=== PATIENT | female | born 1945 | race Two or more races ===

== ENCOUNTER 2018-07-10 21:12 | Inpatient (IN) | payer MEDICARE ==
[~2018-07-10] VITALS: Ht 172.7 cm; Wt 70.3 kg
--- NOTE | 2018-07-10 21:31 | NUR ---
Dr. Cevallos at bedside of [facility].
[2018-07-10] MEDS ORDERED: HALOPERIDOL LACTATE 5 MG/1 ML VIAL ONE (21:42)
[2018-07-10] MEDS ORDERED: LORAZEPAM 2 MG/1 ML VIAL ONE (21:42)
--- NOTE | 2018-07-10 21:43 | NUR ---
Xray at bedside.
[2018-07-10] MEDS ORDERED: HALOPERIDOL LACTATE 5 MG/1 ML VIAL IM ONE (21:45)
[2018-07-10] MEDS ORDERED: LORAZEPAM 2 MG/1 ML VIAL IV ONE (21:45)
[2018-07-10] MEDS ORDERED: LORA0.5T PO (21:50)
[2018-07-10] MEDS ORDERED: DIPH25TA62 PO (21:50)
[2018-07-10] MEDS ORDERED: LUBI24CA5 PO (21:50)
[2018-07-10] MEDS ORDERED: MEMA10TA PO (21:50)
[2018-07-10] MEDS ORDERED: MEGE400O2 PO (21:50)
[2018-07-10] MEDS ORDERED: DONE10TA44 PO (21:50)
[2018-07-10] MEDS ORDERED: POTA10TA15 PO (21:50)
[2018-07-10] MEDS ORDERED: FURO-152 PO (21:50)
[2018-07-10] MEDS ORDERED: METO25TA6 PO (21:50)
[2018-07-10] MEDS ORDERED: ASPI81TA31 PO (21:50)
[2018-07-10] MEDS ORDERED: LORAZEPAM 2 MG/1 ML VIAL IM ONE (22:00)
[2018-07-10 22:05] LABS: BASOPHILS # (AUTO) 0.1 K/uL (0.0-8.0); BASOPHILS % (AUTO) 1.3 % (0.0-2.0); EOSINOPHILS # (AUTO) 0.4 K/uL (0.0-0.7); EOSINOPHILS % (AUTO) 4.3 % (0.0-7.0); HEMATOCRIT 38.1 % (31.2-41.9); HEMOGLOBIN 12.6 g/dL (10.9-14.3); LYMPHOCYTES # (AUTO) 2.4 K/uL (20.0-40.0); LYMPHOCYTES % (AUTO) 28.4 % (20.5-51.5); MEAN CORPUSCULAR HEMOGLOBIN 29.9 uug (24.7-32.8); MEAN CORPUSCULAR HGB CONC 33 g/dL (32.3-35.6); MONOCYTES # (AUTO) 0.8 K/uL (2.0-10.0); MONOCYTES % (AUTO) 9.2 % (0.0-11.0); NEUTROPHILS # (AUTO) 4.9 K/uL (1.8-8.9); NEUTROPHILS % (AUTO) 56.8 % (38.5-71.5); PLATELET COUNT (AUTO) 198 K/uL (179-408); RED BLOOD CELL COUNT(AUTO) 4.23 MIL/uL (3.63-4.92); WHITE BLOOD COUNT (AUTO) 8.5 K/uL (3.8-11.8)
[2018-07-10 22:14] LABS: CARBON DIOXIDE 30 mmol/L (21-32); CHLORIDE 105 mmol/L (98-107); CREATININE 1.2 mg/dL (0.6-1.3); GLUCOSE 118 mg/dL (74-106); POTASSIUM 4.3 mmol/L (3.5-5.1); UREA NITROGEN, BLOOD 19 mg/dL (7-18)
[2018-07-10 22:19] LABS: ALANINE AMINOTRANSFERASE 11 U/L (14-59); ALKALINE PHOSPHATASE 97 U/L (50-136); ASPARTATE AMINOTRANSFERASE 8 U/L (15-37); BILIRUBIN,DIRECT 0.1 mg/dL (0.0-0.2); BILIRUBIN,TOTAL 0.2 mg/dL (0.2-1.0); ETHANOL < 3 MG/DL (0-0); TOTAL PROTEIN, SERUM 6.3 g/dL (6.4-8.2)
[2018-07-10 22:27] LABS: THYROID STIMULATING HORMONE 4.927 mIU/mL (0.358-3.740)
--- NOTE | 2018-07-10 22:50 | NUR ---
Regino SOMMERSW arrived to ER for psych eval.
[2018-07-10 23:43] LABS: *BILIRUBIN,URIN NEGATIVE (NEGATIVE); *BLOOD, URINE NEGATIVE (NEGATIVE); *CLARITY,URINE CLEAR (CLEAR); *COLOR,URINE YELLOW (YELLOW); *KETONES,URINE NEGATIVE (NEGATIVE); LEUKOCYTE ESTERASE ,URINE NEGATIVE (NEGATIVE); NITRITE, URINE POSITIVE (NEGATIVE); UGLUCOSE NEGATIVE (NEGATIVE)
[2018-07-10 23:53] LABS: BACTERIA,URINE MANY /HPF (NONE SEEN); RBC,URINE 0-3 /HPF (0-3); SQUAMOUS EPITHELIAL CELL,UR FEW /HPF (NONE SEEN)
[2018-07-10 23:56] LABS: *AMPHETAMINE, URINE NEGATIVE (NEGATIVE); *BARBITURATE, URINE NEGATIVE (NEGATIVE); *CANNABINOID, URINE NEGATIVE (NEGATIVE); *COCCAINE, URINE NEGATIVE (NEGATIVE); *OPIATE, URINE NEGATIVE (NEGATIVE); *PHENCYCLIDINE SCREEN,URINE NEGATIVE (NEGATIVE)
--- NOTE | 2018-07-11 00:43 | NUR ---
Report given to Karla PEREZ MHU.
--- NOTE | 2018-07-11 01:50 | NUR ---
Admission note: Received patient via gurney from ED. Max assist to the bed. Patient non verbal when spoken to, but did open eyes. Patient unable to answer any questions and fell asleep within minutes. Monitoring for safety , no acting out noted so far.
[2018-07-11] MEDS ORDERED: MAG HYDROX/AL HYDROX/SIMETH 30 ML LIQUID UDC PO PRN (02:00)
[2018-07-11] MEDS ORDERED: ACETAMINOPHEN 325 MG TABLET PO PRN (02:00)
[2018-07-11] MEDS ORDERED: MAGNESIUM HYDROXIDE 30 ML LIQUID UDC PO PRN (02:00)
[2018-07-11 07:30] VITALS: BP 159/93
[2018-07-11] MEDS: DIVALPROEX SPRINKLE 125 MG CAP.SPRINK PO SCH ×4 (10:45→17:00)
[2018-07-11] MEDS: POTASSIUM CHLORIDE 10 MEQ TAB.PRT.SR PO SCH (13:41)
[2018-07-11] MEDS: FUROSEMIDE 20 MG TABLET PO SCH (13:45)
[2018-07-11 16:00] VITALS: BP 139/73
[2018-07-11] MEDS: METOPROLOL TARTRATE 25 MG TABLET PO SCH (20:08)
[2018-07-11 20:11] VITALS: BP 141/69
[2018-07-11] MEDS ORDERED: diphenhydrAMINE 25 MG CAP PO SCH (21:00)
--- NOTE | 2018-07-11 21:30 | NUR ---
Refused HS medication.
[2018-07-11] MEDS ORDERED: Z GUARD REMEDY PASTE 57 GM TUBE TOP PRN (23:45)
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
[2018-07-12 07:30] VITALS: BP 141/90
[2018-07-12] MEDS: METOPROLOL TARTRATE 25 MG TABLET PO SCH ×2 (09:00→20:59)
[2018-07-12] MEDS: POTASSIUM CHLORIDE 10 MEQ TAB.PRT.SR PO SCH (09:00)
[2018-07-12] MEDS: MEGESTROL ACETATE 400 MG/10 ML LIQUID UDC PO SCH (09:00)
[2018-07-12] MEDS: DIVALPROEX SPRINKLE 125 MG CAP.SPRINK PO SCH ×3 (09:00→17:45)
[2018-07-12] MEDS: ASPIRIN 81 MG TAB.CHEW PO SCH (09:00)
[2018-07-12] MEDS: FUROSEMIDE 20 MG TABLET PO SCH (09:00)
--- NOTE | 2018-07-12 12:39 | NUR ---
Social work note: 12:30pm: Per patient 5150 hold, patient has a public guardian [Renetta Knott; ]. construction worker called Renetta and left a voicemail requesting conservatorship paperwork and detain & treat be faxed over. construction worker awaiting fax and call back from public guardian.
--- NOTE | 2018-07-12 14:27 | NUR ---
Initial Discharge Note: Patient is a 73 year old female who currently resides at [facility] [[address] [place] [address]; ]. Per probate conservator, Renetta Knott [ ], she would like patient to return to facility when ready. jackscrew worker called facility and spoke with complaint coordinator, Xin, who states they will accept patient back pending reassessment. jackscrew worker will coordinate reassessment when patient is closer to a discharge date. jackscrew worker will continue to collaborate with patient, probate conservator, and MD on a safe and proper discharge.
[2018-07-12 15:39] LABS: BASOPHILS # (AUTO) 0.1 K/uL (0.0-8.0); BASOPHILS % (AUTO) 1.1 % (0.0-2.0); EOSINOPHILS # (AUTO) 0.1 K/uL (0.0-0.7); EOSINOPHILS % (AUTO) 1.4 % (0.0-7.0); HEMATOCRIT 39.4 % (31.2-41.9); LYMPHOCYTES # (AUTO) 1.4 K/uL (20.0-40.0); LYMPHOCYTES % (AUTO) 16.5 % (20.5-51.5); MEAN CORPUSCULAR HEMOGLOBIN 29.7 uug (24.7-32.8); MEAN CORPUSCULAR HGB CONC 33 g/dL (32.3-35.6); MEAN CORPUSCULAR VOLUME 90.2 fL (75.5-95.3); MONOCYTES # (AUTO) 0.6 K/uL (2.0-10.0); MONOCYTES % (AUTO) 6.8 % (0.0-11.0); NEUTROPHILS # (AUTO) 6.2 K/uL (1.8-8.9); NEUTROPHILS % (AUTO) 74.2 % (38.5-71.5); PLATELET COUNT (AUTO) 212 K/uL (179-408); RED BLOOD CELL COUNT(AUTO) 4.37 MIL/uL (3.63-4.92); WHITE BLOOD COUNT (AUTO) 8.3 K/uL (3.8-11.8)
[2018-07-12 15:48] LABS: CARBON DIOXIDE 30 mmol/L (21-32); CHLORIDE 107 mmol/L (98-107); GLUCOSE 132 mg/dL (74-106); MAGNESIUM 2.2 mg/dL (1.8-2.4); POTASSIUM 4.3 mmol/L (3.5-5.1); UREA NITROGEN, BLOOD 25 mg/dL (7-18)
[2018-07-12 15:50] VITALS: BP 189/68
[2018-07-12 20:00] VITALS: BP 103/77
[2018-07-12] MEDS: TEMAZEPAM 7.5 MG CAPSULE PO PRN (20:59)
[2018-07-12] MEDS: LORAZEPAM 0.5 MG TABLET PO PRN (23:13)
[2018-07-13 07:30] VITALS: BP 139/50
[2018-07-13] MEDS: MEGESTROL ACETATE 400 MG/10 ML LIQUID UDC PO SCH (08:04)
[2018-07-13] MEDS: DIVALPROEX SPRINKLE 125 MG CAP.SPRINK PO SCH ×3 (08:05→16:28)
[2018-07-13] MEDS: FUROSEMIDE 20 MG TABLET PO SCH (08:05)
[2018-07-13] MEDS: POTASSIUM CHLORIDE 10 MEQ TAB.PRT.SR PO SCH (08:05)
[2018-07-13] MEDS: ASPIRIN 81 MG TAB.CHEW PO SCH (08:05)
[2018-07-13] MEDS: METOPROLOL TARTRATE 25 MG TABLET PO SCH ×2 (09:00→21:00)
--- NOTE | 2018-07-13 12:38 | NUR ---
WOUND CARE CONSULT: PT ADAMANTLY REFUSED SKIN ASSESSMENT. SPOKE WITH NURSING STAFF AND REVIEWED ADMISSION PHOTOS. PER NURSING STAFF, PT HAS LEFT INNER BUTTOCK OPEN SKIN AND IS INCONTINENT BUT AMBULATORY. RECOMMENDATIONS MADE FOR SKIN CARE AND PROTECTION. DISCUSSED WITH NURSING STAFF. WILL SEE PRN. WHITE IN AGREEMENT WITH PLAN OF CARE. CURRENT GIANCARLO SCORE IS 17. Addendum: 07/13/18 at 1243 by MAXIMUS LOW RN RECOMMENDATIONS MADE BASED ON ADMISSION PHOTO DOCUMENTATION AND NURSING REPORT.
[2018-07-13 15:42] VITALS: BP 104/62
[2018-07-13] MEDS ORDERED: DIVALPROEX 250 MG TABLET.DR PO SCH (21:00)
--- NOTE | 2018-07-13 22:00 | NUR ---
received to care, lying in bed, asleep. refused b/p check, wound assessment, and all medications. as of 2199, she remains asleep. no distress noted.
[2018-07-14] MEDS: LORAZEPAM 0.5 MG TABLET PO PRN ×2 (06:12→18:10)
--- NOTE | 2018-07-14 06:13 | NUR ---
is now awake, and pacing the hallway. intrusive with peers rooms. PRN ativan was given, amd she was assisted back to bed. will continue to monitor closely.
--- NOTE | 2018-07-14 06:44 | NUR ---
appears to be asleep. slept 6 hours.
[2018-07-14 07:30] VITALS: BP 139/58
[2018-07-14] MEDS: POTASSIUM CHLORIDE 10 MEQ TAB.PRT.SR PO SCH (08:54)
[2018-07-14] MEDS: MEGESTROL ACETATE 400 MG/10 ML LIQUID UDC PO SCH (08:54)
[2018-07-14] MEDS: ASPIRIN 81 MG TAB.CHEW PO SCH (08:55)
[2018-07-14] MEDS: FUROSEMIDE 20 MG TABLET PO SCH (08:55)
[2018-07-14] MEDS: METOPROLOL TARTRATE 25 MG TABLET PO SCH ×2 (08:55→20:44)
[2018-07-14] MEDS ORDERED: DIVALPROEX SPRINKLE 125 MG CAP.SPRINK PO SCH (09:00)
[2018-07-14 11:34] LABS: BASOPHILS % (AUTO) 0.6 % (0.0-2.0); EOSINOPHILS # (AUTO) 0.3 K/uL (0.0-0.7); EOSINOPHILS % (AUTO) 3.6 % (0.0-7.0); HEMATOCRIT 39.9 % (31.2-41.9); HEMOGLOBIN 13.2 g/dL (10.9-14.3); LYMPHOCYTES # (AUTO) 1.4 K/uL (20.0-40.0); LYMPHOCYTES % (AUTO) 18.3 % (20.5-51.5); MEAN CORPUSCULAR HEMOGLOBIN 29.8 uug (24.7-32.8); MEAN CORPUSCULAR HGB CONC 33 g/dL (32.3-35.6); MEAN CORPUSCULAR VOLUME 90.2 fL (75.5-95.3); MONOCYTES # (AUTO) 0.6 K/uL (2.0-10.0); MONOCYTES % (AUTO) 8.1 % (0.0-11.0); NEUTROPHILS # (AUTO) 5.2 K/uL (1.8-8.9); NEUTROPHILS % (AUTO) 69.4 % (38.5-71.5); PLATELET COUNT (AUTO) 185 K/uL (179-408); RED BLOOD CELL COUNT(AUTO) 4.43 MIL/uL (3.63-4.92); WHITE BLOOD COUNT (AUTO) 7.5 K/uL (3.8-11.8)
[2018-07-14 11:48] LABS: ALANINE AMINOTRANSFERASE 14 U/L (14-59); ALKALINE PHOSPHATASE 76 U/L (50-136); ASPARTATE AMINOTRANSFERASE 16 U/L (15-37); BILIRUBIN,TOTAL 0.4 mg/dL (0.2-1.0); CARBON DIOXIDE 29 mmol/L (21-32); CHLORIDE 108 mmol/L (98-107); GLUCOSE 121 mg/dL (74-106); MAGNESIUM 1.9 mg/dL (1.8-2.4); POTASSIUM 4.7 mmol/L (3.5-5.1); TOTAL PROTEIN, SERUM 6.2 g/dL (6.4-8.2); UREA NITROGEN, BLOOD 16 mg/dL (7-18)
[2018-07-14] MEDS: DIVALPROEX SPRINKLE 125 MG CAP.SPRINK PO SCH ×2 (13:16→17:46)
[2018-07-14 19:52] VITALS: BP 153/70
[2018-07-14] MEDS: TEMAZEPAM 7.5 MG CAPSULE PO PRN (20:44)
--- NOTE | 2018-07-14 22:00 | NUR ---
received to care, lying in bed, non interactive, but easy to redirect. continues to refuse wound assessment. observed to be pacing intermittently. PRN restoril was given at 2044. as of 2199, she appears to be asleep. no distress noted. will continue to monitor closely.
--- NOTE | 2018-07-15 06:00 | NUR ---
slept 7.5 hours.
[2018-07-15 07:30] VITALS: BP 102/82
[2018-07-15] MEDS: ASPIRIN 81 MG TAB.CHEW PO SCH (08:32)
[2018-07-15] MEDS: MEGESTROL ACETATE 400 MG/10 ML LIQUID UDC PO SCH (08:32)
[2018-07-15] MEDS: DIVALPROEX SPRINKLE 125 MG CAP.SPRINK PO SCH ×3 (08:33→18:11)
[2018-07-15] MEDS: POTASSIUM CHLORIDE 10 MEQ TAB.PRT.SR PO SCH (08:33)
[2018-07-15] MEDS: METOPROLOL TARTRATE 25 MG TABLET PO SCH ×2 (08:34→20:21)
[2018-07-15] MEDS: FUROSEMIDE 20 MG TABLET PO SCH (08:35)
--- NOTE | 2018-07-15 10:30 | NUR ---
Gps/Program Services Planner- Dr Guy called requesting postponement of Reise hearing, noted patient had been taking her routine medications. Called Court as requested, spoked to Nadja, informed of the request cancellation , PC hearing still scheduled at 1500. Karen JEAN was informed.
--- NOTE | 2018-07-15 11:30 | NUR ---
GPS PATIENT CONTINUOUSLY PACING AROUND THE HALLWAY,PATIENT HAS REFUSED TO HAVE HER URINE TO BE COLLECTED, WITH FOUL SMELL ODOR NOTED
[2018-07-15] MEDS: NITROFURANTOIN/NITROFURAN MAC 100 MG CAPSULE PO SCH ×2 (12:06→20:20)
--- NOTE | 2018-07-15 14:42 | NUR ---
Gps/.Floor Representative- Refusing blood draws, uncooperative Lab.tech. Wanders around the unit, goes room to room, constant redirections.Had been complaint with routine meds. with min.prompting. Safety reviewed, emphasized. Monitor needs. Had echo done at the bedside 2 staff assisting during procedures, patient was figity.
--- NOTE | 2018-07-16 05:50 | NUR ---
GPS: Remain confused and disoriented. assisted with adl's. patient is incontinent. good pericare provided. slept 7:30 hrs through the night. continue plan of care.
[2018-07-16 07:30] VITALS: BP 100/62
[2018-07-16] MEDS: POTASSIUM CHLORIDE 10 MEQ TAB.PRT.SR PO SCH (08:50)
[2018-07-16] MEDS: DIVALPROEX SPRINKLE 125 MG CAP.SPRINK PO SCH ×3 (08:50→17:28)
[2018-07-16] MEDS: NITROFURANTOIN/NITROFURAN MAC 100 MG CAPSULE PO SCH ×2 (08:50→20:50)
[2018-07-16] MEDS: ASPIRIN 81 MG TAB.CHEW PO SCH (08:50)
[2018-07-16] MEDS: MEGESTROL ACETATE 400 MG/10 ML LIQUID UDC PO SCH (08:51)
[2018-07-16] MEDS: METOPROLOL TARTRATE 25 MG TABLET PO SCH ×2 (08:51→20:50)
[2018-07-16] MEDS: FUROSEMIDE 20 MG TABLET PO SCH (08:54)
[2018-07-16] MEDS: OLANZAPINE ZYDIS 5 MG TAB.RAPDIS PO SCH ×2 (13:28→20:50)
[2018-07-16 16:00] VITALS: BP 112/58
--- NOTE | 2018-07-16 18:00 | NUR ---
Gps/Newspaper Journalist- Kept up on a otto-chair after her shower , Fed self ind. after set up. Patient noted after few minutes, she's getting anxious, wanting to walk around . patient tends to wanders to other patient's room , constant redirections provided, continue to monitor patient closely for safety.
--- NOTE | 2018-07-16 18:15 | NUR ---
Gps/Dress Cap Maker- Had poorly groomed toenails, great toes are thick and curling, might benefit from a Podiatry consult.
--- NOTE | 2018-07-16 20:00 | NUR ---
RECEIVED PATIENT IN THE HALLWAY SITTING IN A TITO CHAIR. SHE IS NOTED A/O X 1. CALM AND PLEASANT AT THIS TIME. POOR HISTORIAN. BLUNTED AFFECT. V/S STABLE AT THIS TIME. PATIENT WAS REASSURED FOR HER SAFETY. SAFETY AND FALL PRECAUTION ARE IN PLACED. WILL CONTINUE TO MONITOR,
[2018-07-16 22:11] VITALS: BP 158/60
[2018-07-17 07:30] VITALS: BP 145/53
[2018-07-17 07:30] LABS: BASOPHILS % (AUTO) 0.7 % (0.0-2.0); EOSINOPHILS # (AUTO) 0.3 K/uL (0.0-0.7); EOSINOPHILS % (AUTO) 4.6 % (0.0-7.0); HEMATOCRIT 40.6 % (31.2-41.9); HEMOGLOBIN 13.3 g/dL (10.9-14.3); LYMPHOCYTES # (AUTO) 2.3 K/uL (20.0-40.0); LYMPHOCYTES % (AUTO) 34.4 % (20.5-51.5); MEAN CORPUSCULAR HEMOGLOBIN 29.6 uug (24.7-32.8); MEAN CORPUSCULAR HGB CONC 33 g/dL (32.3-35.6); MEAN CORPUSCULAR VOLUME 89.9 fL (75.5-95.3); MONOCYTES # (AUTO) 0.6 K/uL (2.0-10.0); MONOCYTES % (AUTO) 9.3 % (0.0-11.0); NEUTROPHILS # (AUTO) 3.4 K/uL (1.8-8.9); PLATELET COUNT (AUTO) 197 K/uL (179-408); RED BLOOD CELL COUNT(AUTO) 4.51 MIL/uL (3.63-4.92); WHITE BLOOD COUNT (AUTO) 6.7 K/uL (3.8-11.8)
[2018-07-17] MEDS: DIVALPROEX SPRINKLE 125 MG CAP.SPRINK PO SCH ×3 (09:39→16:53)
[2018-07-17] MEDS: POTASSIUM CHLORIDE 10 MEQ TAB.PRT.SR PO SCH (09:39)
[2018-07-17] MEDS: NITROFURANTOIN/NITROFURAN MAC 100 MG CAPSULE PO SCH ×2 (09:39→20:01)
[2018-07-17] MEDS: ASPIRIN 81 MG TAB.CHEW PO SCH (09:39)
[2018-07-17] MEDS: FUROSEMIDE 20 MG TABLET PO SCH (09:39)
[2018-07-17] MEDS: METOPROLOL TARTRATE 25 MG TABLET PO SCH ×2 (09:40→20:04)
[2018-07-17] MEDS: OLANZAPINE ZYDIS 5 MG TAB.RAPDIS PO SCH ×2 (09:40→20:01)
[2018-07-17] MEDS: MEGESTROL ACETATE 400 MG/10 ML LIQUID UDC PO SCH (09:41)
--- NOTE | 2018-07-17 12:05 | NUR ---
Gps/Center Administrator-Per monitor, noted patient had episode of falling, as she missed the chair when she was trying to sit down on it.Patient fell backward , not hitting his head . B/P 106/59 , 94% 02 sat , HR 67, resp 16.Patient refusing to have body check , will reassess when calmed down.
--- NOTE | 2018-07-17 12:20 | NUR ---
Gps/Coppersmith Apprentice- Heather Shoemaker DOCUMENT CLERK was called by Movie Extra Jade, was informed of the mechanical fall, no orders received. Continue to monitor patient for safety denies pain .
[2018-07-17 15:36] VITALS: BP 125/70
[2018-07-17] MEDS: LORAZEPAM 0.5 MG TABLET PO PRN ×2 (16:53→22:53)
--- NOTE | 2018-07-17 17:45 | NUR ---
Gps/Restaurant Busser- Poor safety judgement, almost falling episode as observed and assisted by Oil Well Directional Surveyor. Kept patient up in her otto-chair during her dinner for safety, and to be able to concentrate during her meal , patient tends to wander around , goes room to room, constant redirections.
[2018-07-17 20:35] VITALS: BP 144/71
[2018-07-18 07:30] VITALS: BP 156/84
[2018-07-18] MEDS: ASPIRIN 81 MG TAB.CHEW PO SCH (08:42)
[2018-07-18] MEDS: POTASSIUM CHLORIDE 10 MEQ TAB.PRT.SR PO SCH (08:42)
[2018-07-18] MEDS: FUROSEMIDE 20 MG TABLET PO SCH (08:42)
[2018-07-18] MEDS: NITROFURANTOIN/NITROFURAN MAC 100 MG CAPSULE PO SCH ×2 (08:42→20:17)
[2018-07-18] MEDS: OLANZAPINE ZYDIS 5 MG TAB.RAPDIS PO SCH ×2 (08:42→20:18)
[2018-07-18] MEDS: DIVALPROEX SPRINKLE 125 MG CAP.SPRINK PO SCH ×3 (08:42→16:29)
[2018-07-18] MEDS: MEGESTROL ACETATE 400 MG/10 ML LIQUID UDC PO SCH (08:43)
[2018-07-18] MEDS: METOPROLOL TARTRATE 25 MG TABLET PO SCH ×2 (08:52→20:17)
--- NOTE | 2018-07-18 09:14 | NUR ---
Gps/Uniform Designer Remains up on her jack-chair for breakfast, ate well, with min assist.r/t patient tends to spills her fluids. Calling out for help, anxious ,banging her tray safety continue to emphasized. Kept infront of the Nurses station, to closely monitored safety.
[2018-07-18] MEDS: LORAZEPAM 0.5 MG TABLET PO PRN ×2 (15:29→21:29)
[2018-07-18 16:08] VITALS: BP 142/63
[2018-07-18 21:49] VITALS: BP 138/62
[2018-07-18 22:02] VITALS: BP 138/62
[2018-07-19 07:30] VITALS: BP 183/79
[2018-07-19] MEDS: NITROFURANTOIN/NITROFURAN MAC 100 MG CAPSULE PO SCH ×2 (08:55→21:57)
[2018-07-19] MEDS: DIVALPROEX SPRINKLE 125 MG CAP.SPRINK PO SCH ×3 (08:55→17:06)
[2018-07-19] MEDS: OLANZAPINE ZYDIS 5 MG TAB.RAPDIS PO SCH ×2 (08:55→21:58)
[2018-07-19] MEDS: POTASSIUM CHLORIDE 10 MEQ TAB.PRT.SR PO SCH (08:55)
[2018-07-19] MEDS: FUROSEMIDE 20 MG TABLET PO SCH (08:55)
[2018-07-19] MEDS: ASPIRIN 81 MG TAB.CHEW PO SCH (08:55)
[2018-07-19] MEDS: MEGESTROL ACETATE 400 MG/10 ML LIQUID UDC PO SCH (08:56)
[2018-07-19] MEDS: METOPROLOL TARTRATE 25 MG TABLET PO SCH ×2 (08:58→21:57)
--- NOTE | 2018-07-19 09:57 | NUR ---
Firearms Report: fruit or nut farm worker completed and submitted a [employer] firearms report for a 5250 GD certification.
[2018-07-19 16:11] VITALS: BP 155/77
--- NOTE | 2018-07-19 18:44 | NUR ---
patient is sitting in the gerichair, no sob, resp even nonlabored, no acute distress noted, safety measures in place, assisted with meals. no agressive or combative behaviour noted.
[2018-07-19 20:46] VITALS: BP 164/69
--- NOTE | 2018-07-20 06:18 | NUR ---
Pt given shower this morning. No overnight events. Pt in otto chair next to nurse's station at this time, in no acute distress.
[2018-07-20 07:30] VITALS: BP 141/94
[2018-07-20 07:57] LABS: BASOPHILS # (AUTO) 0.1 K/uL (0.0-8.0); BASOPHILS % (AUTO) 0.6 % (0.0-2.0); EOSINOPHILS # (AUTO) 0.3 K/uL (0.0-0.7); EOSINOPHILS % (AUTO) 3.5 % (0.0-7.0); HEMOGLOBIN 14.9 g/dL (10.9-14.3); LYMPHOCYTES # (AUTO) 2.5 K/uL (20.0-40.0); MEAN CORPUSCULAR HGB CONC 33 g/dL (32.3-35.6); MONOCYTES # (AUTO) 0.8 K/uL (2.0-10.0); MONOCYTES % (AUTO) 9.4 % (0.0-11.0); NEUTROPHILS # (AUTO) 4.4 K/uL (1.8-8.9); NEUTROPHILS % (AUTO) 55.5 % (38.5-71.5); PLATELET COUNT (AUTO) 216 K/uL (179-408); RED BLOOD CELL COUNT(AUTO) 4.95 MIL/uL (3.63-4.92)
[2018-07-20 08:06] LABS: ALANINE AMINOTRANSFERASE 19 U/L (14-59); ALKALINE PHOSPHATASE 78 U/L (50-136); ASPARTATE AMINOTRANSFERASE 19 U/L (15-37); BILIRUBIN,TOTAL 0.3 mg/dL (0.2-1.0); CARBON DIOXIDE 30 mmol/L (21-32); CHLORIDE 108 mmol/L (98-107); CREATININE 0.9 mg/dL (0.6-1.3); GLUCOSE 100 mg/dL (74-106); POTASSIUM 4.8 mmol/L (3.5-5.1); TOTAL PROTEIN, SERUM 7.5 g/dL (6.4-8.2); UREA NITROGEN, BLOOD 30 mg/dL (7-18); VALPROIC ACID 69 ug/mL (50-100)
[2018-07-20] MEDS: ASPIRIN 81 MG TAB.CHEW PO SCH (08:17)
[2018-07-20] MEDS: FUROSEMIDE 20 MG TABLET PO SCH (08:17)
[2018-07-20] MEDS: NITROFURANTOIN/NITROFURAN MAC 100 MG CAPSULE PO SCH ×2 (08:17→20:13)
[2018-07-20] MEDS: DIVALPROEX SPRINKLE 125 MG CAP.SPRINK PO SCH ×3 (08:17→16:36)
[2018-07-20] MEDS: OLANZAPINE ZYDIS 5 MG TAB.RAPDIS PO SCH ×2 (08:18→20:13)
[2018-07-20] MEDS: POTASSIUM CHLORIDE 10 MEQ TAB.PRT.SR PO SCH (08:18)
[2018-07-20] MEDS: METOPROLOL TARTRATE 25 MG TABLET PO SCH ×2 (08:18→20:14)
[2018-07-20] MEDS: MEGESTROL ACETATE 400 MG/10 ML LIQUID UDC PO SCH (08:19)
[2018-07-20 15:10] VITALS: BP 140/64
[2018-07-20 20:46] VITALS: BP 146/97
[2018-07-21 07:30] VITALS: BP 147/52
[2018-07-21] MEDS: POTASSIUM CHLORIDE 10 MEQ TAB.PRT.SR PO SCH (08:07)
[2018-07-21] MEDS: NITROFURANTOIN/NITROFURAN MAC 100 MG CAPSULE PO SCH (08:07)
[2018-07-21] MEDS: OLANZAPINE ZYDIS 5 MG TAB.RAPDIS PO SCH ×2 (08:07→20:15)
[2018-07-21] MEDS: FUROSEMIDE 20 MG TABLET PO SCH (08:07)
[2018-07-21] MEDS: ASPIRIN 81 MG TAB.CHEW PO SCH (08:07)
[2018-07-21] MEDS: DIVALPROEX SPRINKLE 125 MG CAP.SPRINK PO SCH ×3 (08:07→16:26)
[2018-07-21] MEDS: MEGESTROL ACETATE 400 MG/10 ML LIQUID UDC PO SCH (08:09)
[2018-07-21] MEDS: METOPROLOL TARTRATE 25 MG TABLET PO SCH ×2 (08:09→20:14)
[2018-07-21 16:00] VITALS: BP 146/62
[2018-07-21] MEDS ORDERED: METOPROLOL TARTRATE 25 MG TABLET PO SCH (21:00)
[2018-07-21 21:04] VITALS: BP 153/73
[2018-07-21] MEDS ORDERED: METOPROLOL TARTRATE 25 MG TABLET PO ONE (21:15)
[2018-07-22] MEDS: TEMAZEPAM 7.5 MG CAPSULE PO PRN (01:57)
[2018-07-22 07:30] VITALS: BP 138/56
[2018-07-22] MEDS: POTASSIUM CHLORIDE 10 MEQ TAB.PRT.SR PO SCH (08:56)
[2018-07-22] MEDS: DIVALPROEX SPRINKLE 125 MG CAP.SPRINK PO SCH ×2 (08:56→12:22)
[2018-07-22 08:57] VITALS: BP 138/56
[2018-07-22] MEDS: FUROSEMIDE 20 MG TABLET PO SCH (08:57)
[2018-07-22] MEDS: ASPIRIN 81 MG TAB.CHEW PO SCH (08:57)
[2018-07-22] MEDS: OLANZAPINE ZYDIS 5 MG TAB.RAPDIS PO SCH (08:57)
[2018-07-22] MEDS: MEGESTROL ACETATE 400 MG/10 ML LIQUID UDC PO SCH (08:58)
[2018-07-22] MEDS ORDERED: METOPROLOL TARTRATE 25 MG TABLET PO SCH (09:00)
--- NOTE | 2018-07-22 10:11 | NUR ---
DC NOTE: Patient will be discharged back to [facility] [[address] [place] [address]; ] and transportation will be provided by ambulance at 12:00pm. Please arrange ambulance transportation for this patient. Acceptance of patient back to facility has been received by Xin in service coordinator, who states they are ready to accept the patient back today. assembly worker called probate conservator, Renetta Knott [ ], and left a voicemail informing her of patient scheduled discharge for today back to [facility]. assembly worker instructed Renetta to call this casualty underwriter back before noon if she objects to discharge. Patient is AxOx1, denies suicidal ideations, is able to plan for basic self-care, and is agreeable to discharge plan. assembly worker called and left a voicemail for Blanca in service coordinator, inquiring who patient will follow-up with at facility. assembly worker currently awaiting call back and will update this note when information is received. assembly worker provided patient with mental health resources including [facility] Crisis Line [ ], Oksana Paz [ ], and National Suicide Prevention Lifeline [ ].
--- NOTE | 2018-07-22 13:00 | NUR ---
Gps/Banana Ripening Room Supervisor- Patient remains confused, oriented to self interactive, speech incoherent. Discharged instructions, prescriptions put in the packet for the patient , instructed Ambulance transport to give packet to person incharge at the [facility]. Patient was discharged via ambulance, in no sign of any distress, no discomfort, belongings given back to patient.
== END 2018-07-22 13:00 | DRG 885 ==
LOC: ER 21:14 → GPS 07-11 01:00
PROVIDERS: ADMIT Psychiatry & Neurology Psychosomatic Medicine; ATTEND Internal Medicine
DX: F29 Unspecified psychosis not due to a substance or known physiological condition (principal); I11.0 Hypertensive heart disease with heart failure; N17.0 Acute kidney failure with tubular necrosis; F03.91 Unspecified dementia, unspecified severity, with behavioral disturbance; N39.0 Urinary tract infection, site not specified; I44.7 Left bundle-branch block, unspecified; I50.9 Heart failure, unspecified; Z79.82 Long term (current) use of aspirin; Z79.899 Other long term (current) drug therapy; I77.810 Thoracic aortic ectasia; F41.9 Anxiety disorder, unspecified; I49.1 Atrial premature depolarization; I45.81 Long QT syndrome; R73.9 Hyperglycemia, unspecified; R94.6 Abnormal results of thyroid function studies
CPT/HCPCS: 36415; 71045; 80164; 80307; 83735; 84443; 85025; 93005; 93307; 97110; 97530; A4663; C1758; G0480; J1630; J2060; J8999

== ENCOUNTER 2018-09-07 16:45 | Emergency (ER) | payer MEDICARE ==
[~2018-09-07] VITALS: Ht 177.8 cm; Wt 81.2 kg
[~2018-09-07 16:45] MED LIST: ASPI81TA31 PO; DIPH25TA62 PO; FURO-152 PO; LUBI24CA5 PO; MEGE400O2 PO; METO25TA6 PO; POTA10TA15 PO
[2018-09-07 17:24] LABS: BASOPHILS # (AUTO) 0.1 K/uL (0.0-8.0); BASOPHILS % (AUTO) 0.6 % (0.0-2.0); EOSINOPHILS # (AUTO) 0.2 K/uL (0.0-0.7); EOSINOPHILS % (AUTO) 2.3 % (0.0-7.0); HEMATOCRIT 41.5 % (31.2-41.9); HEMOGLOBIN 13.8 g/dL (10.9-14.3); LYMPHOCYTES # (AUTO) 2.5 K/uL (20.0-40.0); MEAN CORPUSCULAR HGB CONC 33 g/dL (32.3-35.6); MEAN CORPUSCULAR VOLUME 90.7 fL (75.5-95.3); MONOCYTES # (AUTO) 0.8 K/uL (2.0-10.0); MONOCYTES % (AUTO) 8.8 % (0.0-11.0); NEUTROPHILS # (AUTO) 5.6 K/uL (1.8-8.9); NEUTROPHILS % (AUTO) 61.3 % (38.5-71.5); PLATELET COUNT (AUTO) 198 K/uL (179-408); RED BLOOD CELL COUNT(AUTO) 4.58 MIL/uL (3.63-4.92); WHITE BLOOD COUNT (AUTO) 9.2 K/uL (3.8-11.8)
[2018-09-07] MEDS ORDERED: LORA0.5T PO (17:30)
[2018-09-07] MEDS ORDERED: MEMA10TA PO (17:30)
[2018-09-07] MEDS ORDERED: OLAN2.5T3 PO (17:30)
[2018-09-07] MEDS ORDERED: DIVA125C2 PO (17:30)
[2018-09-07] MEDS ORDERED: DONE10TA44 PO (17:30)
[2018-09-07 17:42] LABS: ALANINE AMINOTRANSFERASE 12 U/L (14-59); ALKALINE PHOSPHATASE 58 U/L (50-136); ASPARTATE AMINOTRANSFERASE 12 U/L (15-37); BILIRUBIN,DIRECT < 0.1 mg/dL (0.0-0.2); BILIRUBIN,TOTAL 0.3 mg/dL (0.2-1.0); CARBON DIOXIDE 25 mmol/L (21-32); GLUCOSE 90 mg/dL (74-106); TOTAL PROTEIN, SERUM 6.9 g/dL (6.4-8.2); UREA NITROGEN, BLOOD 21 mg/dL (7-18)
[2018-09-07 17:43] LABS: CHLORIDE 104 mmol/L (98-107); POTASSIUM 4.1 mmol/L (3.5-5.1)
--- NOTE | 2018-09-07 17:52 | NUR ---
CALLED [facility] AND TALKED TO RAIN, MEMORY CLINICAL COURIER. RAIN SAID THAT PT WAS SITTING AT TABLE, WHEN SHE FELL DOWN, WITNESSED BY ANOTHER COWORKER. CANNOT BE CLARIFIED IF THE PT HEAD HIT THE FLOOR OR NOT.
[2018-09-07] MEDS ORDERED: OLANZAPINE 10 MG VIAL IM ONE ×2 (18:15→18:20)
--- NOTE | 2018-09-07 19:00 | NUR ---
Pt remaines restless. made aware.
--- NOTE | 2018-09-07 19:18 | NUR ---
Hands off report given to Jerome.
--- NOTE | 2018-09-07 19:35 | NUR ---
Patient unable to restless in bed. Attempting to get out of gurny. Dr Negron into re eval patient. At this time patient to restless for ct scan
[2018-09-07] MEDS ORDERED: LORAZEPAM 1 MG TABLET ONE (19:45)
[2018-09-07] MEDS ORDERED: LORAZEPAM 0.5 MG TABLET PO ONE (19:45)
[2018-09-07] MEDS ORDERED: HALOPERIDOL LACTATE 5 MG/1 ML VIAL IM ONE (19:45)
[2018-09-07] MEDS ORDERED: HALOPERIDOL LACTATE 5 MG/1 ML VIAL ONE (19:45)
--- NOTE | 2018-09-07 20:59 | NUR ---
Patient sleeping. Taken for ct scan via gurny.
--- NOTE | 2018-09-07 21:10 | NUR ---
Patient back from ct scan with no distress noted
--- NOTE | 2018-09-07 22:15 | NUR ---
Called [facility] to transport patient back to [facility]. ETA [id number]. Trip # [id number]
--- NOTE | 2018-09-07 22:44 | NUR ---
Gave SBAR report to ambulanz unit 111
[2018-09-07 22:45] VITALS: BP 127/71
--- NOTE | 2018-09-07 22:50 | NUR ---
D/C'ed back to [facility]
== END 2018-09-07 22:51 | disposition home or self-care (01) ==
LOC: ER 16:47
DX: R79.89 Other specified abnormal findings of blood chemistry (principal); M79.645 Pain in left finger(s); M54.2 Cervicalgia; R51 Headache; I25.10 Atherosclerotic heart disease of native coronary artery without angina pectoris; I50.9 Heart failure, unspecified; F41.9 Anxiety disorder, unspecified; F32.9 Major depressive disorder, single episode, unspecified; Z79.899 Other long term (current) drug therapy; Z79.82 Long term (current) use of aspirin; W19.XXXA Unspecified fall, initial encounter; Y93.89 Activity, other specified; Y92.89 Other specified places as the place of occurrence of the external cause; Y99.8 Other external cause status
CPT/HCPCS: 36415; 70450; 72125; 73140; 80048; 80076; 84484; 85025; 85730; 93005; 96372 ×2; 99284; J1630; 70030-TC; A4663; J2358

== ENCOUNTER 2018-10-22 15:50 | Inpatient (IN) | payer MEDICARE ==
[~2018-10-22] VITALS: Ht 170.2 cm; Wt 74.8 kg
[2018-10-27 11:08] VITALS: BP 131/56
== END 2018-10-27 17:02 | DRG 871 ==
LOC: ER 15:52 → TELE3 20:23 → MEDSURG3 10-25 11:40
PROVIDERS: ADMIT Registered Nurse; ATTEND Registered Nurse
PROC: 05H933Z Insertion of Infusion Device into Right Brachial Vein, Percutaneous Approach (ICD-10-PCS; principal; 2018-10-23)
DX: A41.9 Sepsis, unspecified organism (principal); J96.01 Acute respiratory failure with hypoxia; J18.9 Pneumonia, unspecified organism; N39.0 Urinary tract infection, site not specified; R47.01 Aphasia; E87.0 Hyperosmolality and hypernatremia; R65.20 Severe sepsis without septic shock; B96.20 Unspecified Escherichia coli [E. coli] as the cause of diseases classified elsewhere; Z16.12 Extended spectrum beta lactamase (ESBL) resistance; E83.42 Hypomagnesemia; K59.00 Constipation, unspecified; F32.9 Major depressive disorder, single episode, unspecified; F41.9 Anxiety disorder, unspecified; F03.90 Unspecified dementia, unspecified severity, without behavioral disturbance, psychotic disturbance, mood disturbance, and anxiety; D69.6 Thrombocytopenia, unspecified; M48.10 Ankylosing hyperostosis [Forestier], site unspecified; K80.20 Calculus of gallbladder without cholecystitis without obstruction; N20.0 Calculus of kidney; I11.0 Hypertensive heart disease with heart failure; I50.9 Heart failure, unspecified; I25.10 Atherosclerotic heart disease of native coronary artery without angina pectoris; J40 Bronchitis, not specified as acute or chronic; Z79.899 Other long term (current) drug therapy; Z79.82 Long term (current) use of aspirin
CPT/HCPCS: 36415; 70030-TC; 71045; 71250; 83605; 83735; 84100; 84443; 85025; 85730; 87040; 87070; 87077; 87086; 93005; A4663; C9113; G0378; J1956; J2185; J2543; J3370; J3475; J3490; J7030; J7050; J7060; Q0163

== ENCOUNTER 2018-11-30 08:40 | Inpatient (IN) | payer MEDICARE ==
[~2018-11-30] VITALS: Ht 165.1 cm; Wt 71.2 kg
[~2018-11-30 08:40] MED LIST changes: +DIVA125C2 PO; +DOCU250C14 PO; +DONE10TA44 PO; +LORA0.5T PO; -MEGE400O2 PO; +MEMA10TA PO; +NITR100C11 PO; +OLAN2.5T3 PO
--- NOTE | 2018-11-30 09:16 | NUR ---
PT IS ALTERED DUE TO HX OF DEMENTIA, BIB RA88, S/P CHOKING ON FOREIGN BODY OBJECT. PER MANAGER SAS'S REPORT, PT WAS EATING BREAKFAST WHEN STAFF MEMBER AT [facility] NOTICED THE PT WAS CHOKING ON HER PANCAKE. THE STAFF MEMBER, WHO IS CURRENTLY AT THE BEDSIDE, ATTEMPTED [place]LICH MANEUVER W/ NO SUCCESS. PT LOST CONSCIOUSNESS AND WAS ASSISTED TO THE FLOOR BEFORE CPR WAS INITIATED. CPR WAS PERFORMED FOR APPROXIMATELY 1 MINUTE LONG AND THE FOREIGN BODY OBJECT WAS CLEARED OF THE PT'S AIRWAY AND PT REGAINED CONSCIOUSNESS. PER PARAMEDICS, PT'S BGL WAS 170 IN THE FIELD. PT HYPOXIC W/ SPO2 AT 89% ON ROOM AIR, ER MD NOTIFIED AND SUPPLEMENTAL O2 ADMIN AT 2 LPM VIA N/C. SPO2 NOW SUSTAINING AT 94-95%. PT NOTED TO BE W/ INTERMITTENT DRY COUGH. PT DOES NOT APPEAR TO BE IN ANY ACUTE DISTRESS AT THIS TIME. VS WNL.
--- NOTE | 2018-11-30 09:20 | NUR ---
PT IS ON NPO STATUS PER ER MD ORDER.
[2018-11-30 09:27] LABS: BASOPHILS # (AUTO) 0.1 K/uL (0.0-8.0); BASOPHILS % (AUTO) 0.7 % (0.0-2.0); EOSINOPHILS # (AUTO) 0.2 K/uL (0.0-0.7); EOSINOPHILS % (AUTO) 1.3 % (0.0-7.0); HEMATOCRIT 43.2 % (31.2-41.9); HEMOGLOBIN 14.2 g/dL (10.9-14.3); LYMPHOCYTES # (AUTO) 1.9 K/uL (20.0-40.0); MEAN CORPUSCULAR HEMOGLOBIN 30.5 uug (24.7-32.8); MEAN CORPUSCULAR HGB CONC 33 g/dL (32.3-35.6); MEAN CORPUSCULAR VOLUME 93.2 fL (75.5-95.3); MONOCYTES # (AUTO) 0.5 K/uL (2.0-10.0); MONOCYTES % (AUTO) 3.8 % (0.0-11.0); NEUTROPHILS # (AUTO) 10.2 K/uL (1.8-8.9); NEUTROPHILS % (AUTO) 79.2 % (38.5-71.5); PLATELET COUNT (AUTO) 203 K/uL (179-408); RED BLOOD CELL COUNT(AUTO) 4.64 MIL/uL (3.63-4.92); WHITE BLOOD COUNT (AUTO) 12.9 K/uL (3.8-11.8)
--- NOTE | 2018-11-30 09:29 | NUR ---
NO CREPITUS NOTED ON THE ANTERIOR CHEST WALL.
[2018-11-30 09:33] LABS: CARBON DIOXIDE 22 mmol/L (21-32); CHLORIDE 103 mmol/L (98-107); CREATININE 1.1 mg/dL (0.6-1.3); GLUCOSE 199 mg/dL (74-106); POTASSIUM 3.4 mmol/L (3.5-5.1); UREA NITROGEN, BLOOD 17 mg/dL (7-18)
[2018-11-30 09:39] LABS: ALANINE AMINOTRANSFERASE 6 U/L (14-59); ALKALINE PHOSPHATASE 81 U/L (50-136); ASPARTATE AMINOTRANSFERASE 13 U/L (15-37); BILIRUBIN,DIRECT < 0.1 mg/dL (0.0-0.2); BILIRUBIN,TOTAL 0.3 mg/dL (0.2-1.0); TOTAL PROTEIN, SERUM 6.8 g/dL (6.4-8.2)
--- NOTE | 2018-11-30 09:58 | NUR ---
LISETTE WHITE SPEAKING W/ DR. OZUNA RE PT'S ADMISSION.
[2018-11-30] MEDS ORDERED: PIPERACILLIN SODIUM/TAZOBACTAM 3.375 G in IV DEXTROSE 5% 50 ML IV ONE (10:00)
[2018-11-30] MEDS ORDERED: PIPERACILLIN/TAZOBACTAM/D5W 50 ML IV ONE (10:24)
[2018-11-30] MEDS ORDERED: IV NORMAL SALINE 1000 ML BAG IV ONE ×2 (11:00→11:15)
--- NOTE | 2018-11-30 11:18 | NUR ---
Pt. admitted to TELE 309, under care of Dr. OZUNA. Belongs List completed
--- NOTE | 2018-11-30 11:30 | NUR ---
RECEIVED PATIENT FOR ADMISSION 73 YEARS OLD FEMALE BY BHUPINDER WITH DX OF ACUTE RESPIRATORY FAILURE AND ACUTE SEPSIS PLACED INTO BED FIXED AND MADE COMFORTABLE PATIENT IS AWAKE ALERT TO SELF WITH CONFUSSION AND DISORIENTATION UNABLE TO RESPOND TO QUESTIONS BUT WHEN ASKED HOW SHE WAS STATED NOT GOOD BUT IS UNABLE TO ELABORATE FUTHER.PATIENT SEEMS UNCOOPERATIVE TURNED AND REPOSITIONED HAS IVF INFUSING FROM THE ED TO HER RIGHT WRIST WRAPPED WITH COBAN PATIENT MADE COMFORTABLE CALLED DR OZUNA LEFT HIM A MESSAGE THAT PATIENT IS HERE AWAITING FOR ORDERS.
[2018-11-30 11:48] VITALS: BP 144/57
[2018-11-30 12:09] VITALS: BP 144/57
[2018-11-30 14:20] LABS: *BILIRUBIN,URIN NEGATIVE (NEGATIVE); *BLOOD, URINE NEGATIVE (NEGATIVE); *CLARITY,URINE CLOUDY (CLEAR); *COLOR,URINE YELLOW (YELLOW); *KETONES,URINE NEGATIVE (NEGATIVE); LEUKOCYTE ESTERASE ,URINE TRACE (NEGATIVE); NITRITE, URINE NEGATIVE (NEGATIVE); UGLUCOSE NEGATIVE (NEGATIVE)
[2018-11-30 14:40] LABS: BACTERIA,URINE MODERATE /HPF (NONE SEEN); SQUAMOUS EPITHELIAL CELL,UR MANY /HPF (NONE SEEN)
[2018-11-30 15:32] VITALS: BP 141/50
[2018-11-30] MEDS ORDERED: ONDANSETRON 4 MG/2 ML VIAL IV PRN (17:15)
[2018-11-30] MEDS ORDERED: LORAZEPAM 2 MG/1 ML VIAL IV PRN (17:15)
[2018-11-30] MEDS ORDERED: ACETAMINOPHEN 650 MG SUPP.RECT RC PRN (17:15)
[2018-11-30] MEDS ORDERED: ACETAMINOPHEN 325 MG TABLET PO PRN (17:15)
[2018-11-30] MEDS ORDERED: MORPHINE SULFATE 2 MG/1 ML DISP.SYRIN IV PRN (17:15)
--- NOTE | 2018-11-30 18:22 | NUR ---
SPOON FED DINNER TOLERATED 50 PERCENT OF HER MEAL TURNED AND REPOSITIONED AND MADE COMFORTABLE AND WILL CONTINUE TO OBSERVE.
--- NOTE | 2018-11-30 20:00 | NUR ---
Patient received into care, sleeping in bed, resting comfortably. Patient is alert/oriented x1, will respond to name but is slightly aphasic. IV site is patent and intact, with curlex covering to prevent patient from pulling at line. ENVIRONMENTAL HEALTH OFFICER notified nurse that patient has a temperature of 99.8, so nurse implemented cooling measures to assist in normalizing temperature. All safety and fall precaution measures are in place. Call light and personal items are within reach at all times. Will continue to monitor patient throughout shift.
[2018-11-30 20:28] VITALS: BP 144/45
[2018-11-30] MEDS: OLANZAPINE 2.5 MG TABLET PO SCH (21:34)
[2018-11-30] MEDS: MEMANTINE HCL 10 MG TABLET PO SCH (21:34)
[2018-11-30] MEDS: METOPROLOL TARTRATE 25 MG TABLET PO SCH (21:34)
[2018-11-30] MEDS: NYSTATIN POWDER 15 GM BOTTLE TOP SCH (21:37)
[2018-11-30] MEDS: Z GUARD REMEDY PASTE 57 GM TUBE TOP SCH (21:37)
[2018-11-30] MEDS: PIPERACILLIN/TAZOBACTAM/D5W 3.375 G in PREMIXED 1 EACH IV SCH (21:44)
[2018-11-30] MEDS ORDERED: PIPERACILLIN SODIUM/TAZOBACTAM 3.375 G in IV DEXTROSE 5% 50 ML IV SCH (22:00)
[2018-12-01 00:21] VITALS: BP 133/88
[2018-12-01 04:31] VITALS: BP 113/64
[2018-12-01] MEDS: PIPERACILLIN/TAZOBACTAM/D5W 3.375 G in PREMIXED 1 EACH IV SCH ×3 (05:30→21:52)
[2018-12-01] MEDS: PANTOPRAZOLE SODIUM 40 MG TABLET.DR PO SCH (06:00)
--- NOTE | 2018-12-01 06:00 | NUR ---
Patient slept intermittently throughout night with no s/s of acute distress or discomfort noted or observed. Prescribed ATBs infused as ordered and tolerated well. All prescribed medications provided as ordered and tolerated well with no adverse side effects noted or observed. Safety and fall precaution measures remain in place. Call light and personal items are within reach at all times.
--- NOTE | 2018-12-01 06:00 | NUR ---
Patient's temperature has been slightly elevated this shift, cooling measures have been slightly successful in lowering it, but it remains in the 99F range. Nurse inserted prescribed tylenol 650mg suppository to help normalize temperature. Will continue to monitor.
[2018-12-01 06:49] LABS: BASOPHILS # (AUTO) 0.1 K/uL (0.0-8.0); BASOPHILS % (AUTO) 0.5 % (0.0-2.0); EOSINOPHILS % (AUTO) 0.4 % (0.0-7.0); HEMATOCRIT 37.3 % (31.2-41.9); HEMOGLOBIN 12.5 g/dL (10.9-14.3); LYMPHOCYTES # (AUTO) 1.2 K/uL (20.0-40.0); LYMPHOCYTES % (AUTO) 10.7 % (20.5-51.5); MEAN CORPUSCULAR HEMOGLOBIN 30.6 uug (24.7-32.8); MEAN CORPUSCULAR HGB CONC 34 g/dL (32.3-35.6); MEAN CORPUSCULAR VOLUME 91.3 fL (75.5-95.3); MONOCYTES # (AUTO) 0.8 K/uL (2.0-10.0); NEUTROPHILS # (AUTO) 9.5 K/uL (1.8-8.9); NEUTROPHILS % (AUTO) 81.4 % (38.5-71.5); PLATELET COUNT (AUTO) 189 K/uL (179-408); RED BLOOD CELL COUNT(AUTO) 4.09 MIL/uL (3.63-4.92); WHITE BLOOD COUNT (AUTO) 11.7 K/uL (3.8-11.8)
[2018-12-01 07:04] LABS: ALANINE AMINOTRANSFERASE 12 U/L (14-59); ALKALINE PHOSPHATASE 66 U/L (50-136); ASPARTATE AMINOTRANSFERASE 17 U/L (15-37); BILIRUBIN,TOTAL 0.7 mg/dL (0.2-1.0); CARBON DIOXIDE 26 mmol/L (21-32); CHLORIDE 108 mmol/L (98-107); CHOLESTEROL 187 mg/dL (<200); CREATININE 0.9 mg/dL (0.6-1.3); GLUCOSE 133 mg/dL (74-106); HDL CHOLESTEROL 54 mg/dL (40-60); MAGNESIUM 1.9 mg/dL (1.8-2.4); PHOSPHOROUS 3.8 mg/dL (2.5-4.9); POTASSIUM 3.7 mmol/L (3.5-5.1); TOTAL PROTEIN, SERUM 6.2 g/dL (6.4-8.2); TRIGLYCERIDES 42 MG/DL (30-150); UREA NITROGEN, BLOOD 12 mg/dL (7-18)
[2018-12-01 07:12] LABS: THYROID STIMULATING HORMONE 3.127 mIU/mL (0.358-3.740)
[2018-12-01 08:00] VITALS: BP 107/43
[2018-12-01] MEDS: DOCUSATE SODIUM 250 MG CAPSULE PO SCH (08:39)
[2018-12-01] MEDS: ASPIRIN 81 MG TAB.CHEW PO SCH (08:39)
[2018-12-01] MEDS: POTASSIUM CHLORIDE 10 MEQ TAB.PRT.SR PO SCH (08:39)
[2018-12-01] MEDS: OLANZAPINE 2.5 MG TABLET PO SCH ×2 (08:39→20:22)
[2018-12-01] MEDS: DIVALPROEX SPRINKLE 125 MG CAP.SPRINK PO SCH ×2 (08:39→16:43)
[2018-12-01] MEDS: Z GUARD REMEDY PASTE 57 GM TUBE TOP SCH ×2 (08:39→20:23)
[2018-12-01] MEDS: MEMANTINE HCL 10 MG TABLET PO SCH ×2 (08:39→20:22)
[2018-12-01] MEDS: DONEPEZIL 10 MG TABLET PO SCH (08:39)
[2018-12-01] MEDS: NYSTATIN POWDER 15 GM BOTTLE TOP SCH ×2 (08:47→20:23)
[2018-12-01] MEDS: METOPROLOL TARTRATE 25 MG TABLET PO SCH ×2 (08:47→20:22)
[2018-12-01 11:08] VITALS: BP 119/36
[2018-12-01 15:07] VITALS: BP 124/36
--- NOTE | 2018-12-01 19:09 | NUR ---
Handoff with ANA Vargas. Charles Bower RN
--- NOTE | 2018-12-01 19:30 | NUR ---
Received patient in bed awake, A&Ox1 w/ confusion. No SOB noted. Safety measures observed. Call light within reach
[2018-12-01 20:01] VITALS: BP 131/62
[2018-12-02 04:42] VITALS: BP 128/42
[2018-12-02] MEDS: PIPERACILLIN/TAZOBACTAM/D5W 3.375 G in PREMIXED 1 EACH IV SCH ×3 (05:38→21:09)
[2018-12-02] MEDS: PANTOPRAZOLE SODIUM 40 MG TABLET.DR PO SCH (06:06)
--- NOTE | 2018-12-02 06:51 | NUR ---
Patient slept well throughout the night. Turned and repositioned Q2. All needs attended. Will endorse accordingly
[2018-12-02 06:52] LABS: BASOPHILS % (AUTO) 0.6 % (0.0-2.0); EOSINOPHILS # (AUTO) 0.2 K/uL (0.0-0.7); EOSINOPHILS % (AUTO) 2.1 % (0.0-7.0); HEMOGLOBIN 12.1 g/dL (10.9-14.3); LYMPHOCYTES # (AUTO) 1.9 K/uL (20.0-40.0); LYMPHOCYTES % (AUTO) 24.1 % (20.5-51.5); MEAN CORPUSCULAR HEMOGLOBIN 30.9 uug (24.7-32.8); MEAN CORPUSCULAR HGB CONC 34 g/dL (32.3-35.6); MONOCYTES # (AUTO) 0.8 K/uL (2.0-10.0); MONOCYTES % (AUTO) 9.7 % (0.0-11.0); NEUTROPHILS % (AUTO) 63.5 % (38.5-71.5); PLATELET COUNT (AUTO) 173 K/uL (179-408); RED BLOOD CELL COUNT(AUTO) 3.92 MIL/uL (3.63-4.92); WHITE BLOOD COUNT (AUTO) 7.9 K/uL (3.8-11.8)
[2018-12-02 07:08] LABS: CARBON DIOXIDE 27 mmol/L (21-32); CHLORIDE 106 mmol/L (98-107); CREATININE 1.1 mg/dL (0.6-1.3); GLUCOSE 100 mg/dL (74-106); MAGNESIUM 2.1 mg/dL (1.8-2.4); POTASSIUM 3.6 mmol/L (3.5-5.1); UREA NITROGEN, BLOOD 16 mg/dL (7-18)
--- NOTE | 2018-12-02 07:30 | NUR ---
PATIENT IN BED RESTING, NO ACUTE DISTRESS NOTED, IV INTACT AND PATENT, NO C/O PAIN AT THIS TIME. SAFETY PROVIDED AT ALL TIMES. WILL CONTINUE TO MONITOR. CALL LIGHT WITHIN REACHED.
[2018-12-02] MEDS: DONEPEZIL 10 MG TABLET PO SCH (08:41)
[2018-12-02] MEDS: OLANZAPINE 2.5 MG TABLET PO SCH ×2 (08:41→20:33)
[2018-12-02] MEDS: POTASSIUM CHLORIDE 10 MEQ TAB.PRT.SR PO SCH (08:41)
[2018-12-02] MEDS: ASPIRIN 81 MG TAB.CHEW PO SCH (08:41)
[2018-12-02] MEDS: DOCUSATE SODIUM 250 MG CAPSULE PO SCH (08:41)
[2018-12-02] MEDS: MEMANTINE HCL 10 MG TABLET PO SCH ×2 (08:41→20:33)
[2018-12-02] MEDS: DIVALPROEX SPRINKLE 125 MG CAP.SPRINK PO SCH ×2 (08:46→16:55)
[2018-12-02] MEDS: METOPROLOL TARTRATE 25 MG TABLET PO SCH ×2 (08:47→20:32)
[2018-12-02] MEDS: Z GUARD REMEDY PASTE 57 GM TUBE TOP SCH ×2 (08:58→20:38)
[2018-12-02] MEDS: NYSTATIN POWDER 15 GM BOTTLE TOP SCH ×2 (08:59→20:38)
[2018-12-02 11:41] VITALS: BP 119/52
[2018-12-02 15:05] VITALS: BP 131/50
--- NOTE | 2018-12-02 18:46 | NUR ---
PATIENT IN BED RESTING, NO ACUTE DISTRESS NOTED, ON SWALLOW SAFETY PRECAUTIONS. IV INTACT AND PATENT, NO C/O PAIN AT THIS TIME. dinner intake 100%. SAFETY PROVIDED AT ALL TIMES. WILL CONTINUE TO MONITOR. CALL LIGHT WITHIN REACHED
[2018-12-02 20:00] VITALS: BP 162/67
[2018-12-03] MEDS: PIPERACILLIN/TAZOBACTAM/D5W 3.375 G in PREMIXED 1 EACH IV SCH ×3 (05:14→21:12)
[2018-12-03 05:54] VITALS: BP 145/60
[2018-12-03] MEDS: PANTOPRAZOLE SODIUM 40 MG TABLET.DR PO SCH (06:12)
--- NOTE | 2018-12-03 07:03 | NUR ---
PATIENT SLEPT WELL LAST NIGHT, KEPT HOB ELEVATED , ASPIRATION PRECATIONS OBSERVED. NO SOB NOTED, IN NO ACUTE DISTRESS, NO CHANGES. CALL LIGHT WITHIN REACH, BED IN LOWEST POSITION.
--- NOTE | 2018-12-03 08:00 | NUR ---
RECEIVED PATIENT IN BED RESTING, NO ACUTE DISTRESS NOTED, NO SOB NOTED. ON SWALLOW SAFETY PRECAUTIONS. IV INTACT AND PATENT, NO C/O PAIN AT THIS TIME. SAFETY PROVIDED AT ALL TIMES. WILL CONTINUE TO MONITOR. CALL LIGHT WITHIN REACH.
[2018-12-03] MEDS: POTASSIUM CHLORIDE 10 MEQ TAB.PRT.SR PO SCH (09:00)
[2018-12-03] MEDS: METOPROLOL TARTRATE 25 MG TABLET PO SCH ×3 (09:00→21:11)
[2018-12-03] MEDS: DIVALPROEX SPRINKLE 125 MG CAP.SPRINK PO SCH ×2 (09:00→17:00)
[2018-12-03] MEDS: DONEPEZIL 10 MG TABLET PO SCH (09:00)
[2018-12-03] MEDS: MEMANTINE HCL 10 MG TABLET PO SCH ×2 (09:00→21:11)
[2018-12-03] MEDS: DOCUSATE SODIUM 250 MG CAPSULE PO SCH (09:00)
[2018-12-03] MEDS: OLANZAPINE 2.5 MG TABLET PO SCH ×2 (09:00→21:11)
[2018-12-03] MEDS: ASPIRIN 81 MG TAB.CHEW PO SCH (09:00)
[2018-12-03] MEDS: NYSTATIN POWDER 15 GM BOTTLE TOP SCH ×2 (09:17→21:10)
[2018-12-03] MEDS: Z GUARD REMEDY PASTE 57 GM TUBE TOP SCH ×2 (09:17→21:10)
[2018-12-03 11:32] VITALS: BP 133/48
--- NOTE | 2018-12-03 12:05 | NUR ---
PT REFUSED AM MEDS. DR NOLEN AWARE. TRIED 3 DIFFERENT TIMES. PT STILL REFUSED. PT AWAKE. PT UNCOOPERATIVE. NO SIGNS OF ACUTE DISTRESS OR SOB. SAFETY MEASURES IMPLEMENTED. BED LOCKED IN LOW POSITION. CALL LIGHT WITHIN REACH. WILL CONTINUE TO MONITOR.
--- NOTE | 2018-12-03 15:30 | NUR ---
@ 1515 PT GIVEN UNSCHEDULED BP MEDICATION. PT COOPERATIVE AT THIS TIME.
[2018-12-03 15:34] VITALS: BP 152/60
--- NOTE | 2018-12-03 17:26 | NUR ---
PT REFUSES 1700 MEDS AT THIS TIME.
--- NOTE | 2018-12-03 18:05 | NUR ---
PT RESTING COMFORTABLY IN BED. PT CONFUSED. CALL LIGHT WITHIN REACH. BED LOCKED IN LOW POSITION. NO ACUTE DISTRESS OR SOB NOTED. PT IS BEDFAST. WILL GIVE REPORT TO INCOMING SHIFT NURSE ACCORDINGLY.
[2018-12-03 20:21] VITALS: BP 163/89
[2018-12-03] MEDS ORDERED: CLONIDINE-TTS 1 PATCH TD SCH (21:00)
[2018-12-03] MEDS ORDERED: CLONIDINE-TTS 1 PATCH TD ONE (22:11)
[2018-12-04] MEDS: PIPERACILLIN/TAZOBACTAM/D5W 3.375 G in PREMIXED 1 EACH IV SCH ×3 (05:37→21:50)
[2018-12-04 05:43] VITALS: BP 146/59
[2018-12-04] MEDS: PANTOPRAZOLE SODIUM 40 MG TABLET.DR PO SCH (06:03)
--- NOTE | 2018-12-04 07:17 | NUR ---
RECEIVED PT RESTING IN BED. NO ACUTE DISTRESS OR SOB NOTED. CALL LIGHT WITHIN REACH. BED LOCKED IN LOW POSITION. SAFETY MEASURES OBSERVED AND IMPLEMENTED. WILL CONTINUE TO MONITOR.
[2018-12-04] MEDS: DIVALPROEX SPRINKLE 125 MG CAP.SPRINK PO SCH ×2 (09:00→17:00)
[2018-12-04] MEDS: DONEPEZIL 10 MG TABLET PO SCH (09:00)
[2018-12-04] MEDS: OLANZAPINE 2.5 MG TABLET PO SCH ×2 (09:00→21:00)
[2018-12-04] MEDS: POTASSIUM CHLORIDE 10 MEQ TAB.PRT.SR PO SCH (09:00)
[2018-12-04] MEDS: MEMANTINE HCL 10 MG TABLET PO SCH ×2 (09:00→21:00)
[2018-12-04] MEDS: DOCUSATE SODIUM 250 MG CAPSULE PO SCH (09:00)
[2018-12-04] MEDS: ASPIRIN 81 MG TAB.CHEW PO SCH (09:00)
[2018-12-04] MEDS: METOPROLOL TARTRATE 25 MG TABLET PO SCH ×2 (09:00→21:00)
[2018-12-04] MEDS: Z GUARD REMEDY PASTE 57 GM TUBE TOP SCH ×2 (09:37→21:50)
[2018-12-04] MEDS: NYSTATIN POWDER 15 GM BOTTLE TOP SCH ×2 (09:39→21:50)
--- NOTE | 2018-12-04 11:48 | NUR ---
PT IS RESTING COMFORTABLY IN BED. PT UNCOOPERATIVE. PT REFUSED AM MEDS DR NOLEN AWARE. NO ACUTE DISTRESS OR SOB NOTED. VS WNL. BED LOCKED IN LOW POSITION. CALL LIGHT WITHIN REACH. WILL CONTINUE TO MONITOR.
[2018-12-04 12:02] VITALS: BP 147/56
[2018-12-04 16:41] VITALS: BP 142/57
--- NOTE | 2018-12-04 18:00 | NUR ---
PT RESTING IN BED. NO ACUTE DISTRESS OR SOB NOTED. REPORT TO BE GIVEN TO INCOMING NURSE.
[2018-12-04 20:34] VITALS: BP 146/64
[2018-12-05 04:46] VITALS: BP 95/65
[2018-12-05] MEDS: PIPERACILLIN/TAZOBACTAM/D5W 3.375 G in PREMIXED 1 EACH IV SCH ×2 (05:31→16:37)
[2018-12-05] MEDS: PANTOPRAZOLE SODIUM 40 MG TABLET.DR PO SCH (06:43)
--- NOTE | 2018-12-05 07:07 | NUR ---
Patient refused all medication last night and this morning, was able to give ATB . patient is stable, endorsed to AM shift
[2018-12-05] MEDS: DOCUSATE SODIUM 250 MG CAPSULE PO SCH (09:00)
[2018-12-05] MEDS: MEMANTINE HCL 10 MG TABLET PO SCH (09:12)
[2018-12-05] MEDS: OLANZAPINE 2.5 MG TABLET PO SCH (09:12)
[2018-12-05] MEDS: DIVALPROEX SPRINKLE 125 MG CAP.SPRINK PO SCH (09:12)
[2018-12-05] MEDS: DONEPEZIL 10 MG TABLET PO SCH (09:12)
[2018-12-05] MEDS: POTASSIUM CHLORIDE 10 MEQ TAB.PRT.SR PO SCH (09:12)
[2018-12-05] MEDS: METOPROLOL TARTRATE 25 MG TABLET PO SCH (09:12)
[2018-12-05] MEDS: NYSTATIN POWDER 15 GM BOTTLE TOP SCH (09:13)
[2018-12-05] MEDS: ASPIRIN 81 MG TAB.CHEW PO SCH (09:13)
[2018-12-05] MEDS: Z GUARD REMEDY PASTE 57 GM TUBE TOP SCH (09:14)
[2018-12-05 11:46] VITALS: BP 138/72
--- NOTE | 2018-12-05 14:57 | NUR ---
REPORT WAS CALLED FOR ANA MARTÍNEZ [phone]- TRANSPO FOR FOR 317 - PIV REMOVED- SAFTEY PRECAUTIONS IN PLACE- WILL CONTINUE TO MONITOR REPORT AND RECORD
[2018-12-05 15:46] VITALS: BP 135/56
[2018-12-05] MEDS ORDERED: PANT40TA2 PO (16:40)
[2018-12-05] MEDS ORDERED: MENT71OI TOP (16:40)
[2018-12-05] MEDS ORDERED: OLAN2.5T3 PO (16:40)
[2018-12-05] MEDS ORDERED: ACET650S24 RC (16:40)
[2018-12-05] MEDS ORDERED: PIPE3.379 IV (16:40)
[2018-12-05] MEDS ORDERED: CLON1PAT TD (16:40)
[2018-12-05] MEDS ORDERED: NYST15PO4 TOP (16:40)
--- NOTE | 2018-12-05 17:50 | NUR ---
piv removed-patient escorted off unit by patient transport
== END 2018-12-05 18:00 | DRG 871 ==
LOC: ER 08:40 → TELE3 11:05 → MEDSURG3 12-01 12:30
PROVIDERS: ADMIT Internal Medicine; ATTEND Internal Medicine
DX: A41.9 Sepsis, unspecified organism (principal); J96.01 Acute respiratory failure with hypoxia; J69.0 Pneumonitis due to inhalation of food and vomit; G92 Toxic encephalopathy; I50.23 Acute on chronic systolic (congestive) heart failure; N39.0 Urinary tract infection, site not specified; D68.59 Other primary thrombophilia; T17.228A Food in pharynx causing other injury, initial encounter; X58.XXXA Exposure to other specified factors, initial encounter; Y93.89 Activity, other specified; Y92.098 Other place in other non-institutional residence as the place of occurrence of the external cause; Z87.440 Personal history of urinary (tract) infections; Z87.442 Personal history of urinary calculi; I25.10 Atherosclerotic heart disease of native coronary artery without angina pectoris; I11.0 Hypertensive heart disease with heart failure; B36.9 Superficial mycosis, unspecified; M48.10 Ankylosing hyperostosis [Forestier], site unspecified; F32.9 Major depressive disorder, single episode, unspecified; F03.90 Unspecified dementia, unspecified severity, without behavioral disturbance, psychotic disturbance, mood disturbance, and anxiety; F41.9 Anxiety disorder, unspecified; Z91.81 History of falling; Z91.19 Patient's noncompliance with other medical treatment and regimen; Z79.899 Other long term (current) drug therapy; R65.20 Severe sepsis without septic shock
CPT/HCPCS: 36415; 70030-TC; 71045; 83605; 83735; 84100; 84443; 85025; 85730; 87040; 87086; 93005; 93307; A4663; C1758; G0378; J2405; J2543; J7030; J7050